=== PATIENT | male | born 1970 | race Caucasian/White ===

== ENCOUNTER 2018-08-28 21:20 | Emergency (ER) | payer OTHER ==
[~2018-08-28] VITALS: Ht 177.8 cm; Wt 83.9 kg
[2018-08-28 21:29] VITALS: BP 136/82
[2018-08-28 21:37] LABS: BASOPHIL % 0.2 % (0.0-0.2); EOSINOPHIL # 0.1 10^3/uL (0.0-0.2); EOSINOPHIL % 0.6 % (0.0-5.0); HEMOGLOBIN 15.7 g/dL (13.9-16.3); LYMPHOCYTES # 2.7 10^3/uL (1.0-4.8); LYMPHOCYTES % 25.9 % (24.0-44.0); MEAN CELL HGB 32.2 pg (26-34); MEAN CELL HGB CONCENTRATION 34.5 g/dL (33-37); MEAN CORP VOLUME 93.4 fL (78-100); MEAN PLATELET VOLUME 9.5 fL (7.8-11.0); MONOCYTES # 0.7 10^3/uL (0.3-0.8); MONOCYTES % 7.1 % (5.0-12.0); NEUTROPHIL # 6.8 10^3/uL (1.8-7.7); NEUTROPHILS % 65.9 % (41.0-85.0); RED CELL DISTRIBUTION WIDTH 13.4 % (11.5-14.5); WHITE BLOOD CELL 10.3 10^3/uL (4.5-11.0)
--- NOTE | 2018-08-28 21:37 | PCM.EKG ---
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
--- NOTE | 2018-08-28 21:37 | ER.PDOC ---
General Chief Complaint: Chest Pain-Cardiac Nature Stated Complaint: CHEST PAIN Time seen by MD: 21:34 Source: patient Exam Limitations: no limitations History of Present Illness Initial Comments Chest pain since yesterday getting worse. No able to get comfortable. Patient received Aspirin and Nitro by EMS. Severity/Quality: moderate, sharp Radiation: shoulders (left), back Prior CP/Workup: No Prior Chest Pain Nitro Today/Relief: 0.4 mg x 2, Mild Relief Aspirin Today: 81 mg x 4, Provided By EMS Associated Symptoms: shortness of breath Allergies: Coded Allergies: No Known Allergies (Unverified , 08/28/18) Past Medical History Medical History: no pertinent history Social History Smoking: less than 1 pack/day Alcohol Use: heavy Drug Use: none Constitutional: no symptoms reported EENTM: no symptoms reported Respiratory: shortness of breath Cardiovascular: chest pain Gastrointestinal: no symptoms reported Genitourinary: no symptoms reported Musculoskeletal: no symptoms reported All Other Systems: Reviewed and Negative Physical Exam General Appearance: No Apparent Distress, WD/WN HEENT: PERRL/EOMI Neck: Non-Tender, Full Range of Motion, Supple, Normal Inspection Respiratory: chest non-tender, lungs clear, normal breath sounds, no respiratory distress, no accessory muscle use Cardiovascular: Normal Peripheral Pulses, Regular Rate, Rhythm, No Edema, No Gallop, No JVD, No Murmur, Tachycardia Gastrointestinal: Normal Bowel Sounds, No Organomegaly, No Pulsatile Mass, Non Tender, Soft Extremities: Normal Range of Motion, Non-Tender, Normal Inspection, No Pedal Edema, No Calf Tenderness, Normal Capillary Refill 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 Moderate size hiatal hernia.) #2 EKG: NSR Departure Time of Disposition: 23:48 Disposition: 01 HOME, SELF-CARE Impression: Primary Impression: Nonspecific chest pain Additional Impression: Anxiety Condition: Improved Referrals: PCP,UNKNOWN (PCP) PRIMARY CARE PROVIDER Additional Instructions: F/U with your PCP in 1-2 days Duration or Time Spent with Pa: 90 mins Problem Qualifiers WARD CASTORENA MD Aug 28, 2018 21:37
--- NOTE | 2018-08-28 21:44 | DIREP ---
PROCEDURE:CHEST 1 VIEW COMPARISON:None. INDICATIONS:Chest pain FINDINGS: LUNGS/PLEURA:Elevated right hemidiaphragm. No consolidation or pleural effusion. VASCULATURE:Normal. Unremarkable pulmonary vasculature. CARDIAC:Normal. No cardiac silhouette abnormality or cardiomegaly. MEDIASTINUM:Normal. No visible mass or adenopathy. BONES:Normal. No fracture or visible bony lesion. OTHER:Moderate size hiatal hernia. CONCLUSION:Elevated right hemidiaphragm. Moderate size hiatal hernia. Dictated by: Kamaljit Kitchen MD on 08/28/2018 at 09:43 PM
[2018-08-28 21:59] LABS: ALANINE AMINOTRANSFERASE(ML) 23 U/L (12-78); ALKALINE PHOSPHATASE 73 U/L (50-136); ASPARTATE AMINO TRANSFERASE 22 U/L (0-35); CALCIUM 9.2 mg/dL (8.4-10.5); CARBON DIOXIDE 22.6 mmol/L (20.0-32); GLUCOSE 118 mg/dL (70-110)
--- NOTE | 2018-08-28 23:14 | PCM.EKG ---
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
--- NOTE | 2018-08-28 23:50 | NUR ---
IV DC'D TIP INTACT, NO BLEEDING
[2018-08-28 23:52] VITALS: BP 143/84
== END 2018-08-28 23:53 | disposition home or self-care (01) ==
LOC: EDBD 21:20 → ER 21:20
DX: F41.9 Anxiety disorder, unspecified (principal); R07.9 Chest pain, unspecified; F17.210 Nicotine dependence, cigarettes, uncomplicated; Z79.899 Other long term (current) drug therapy
CPT/HCPCS: 36415; 71045; 80053; 82550; 83880; 84484; 85025; 85379; 85610; 85730; 93005; 99284